=== PATIENT | female | born 1945 | race Asian ===

== ENCOUNTER → 2017-07-05 | Outpatient (CLI) | payer MEDICARE, BC | END | disposition home or self-care (01) | LOC: RADPV 13:48 | PROVIDERS: ATTEND Legal Medicine | DX: J84.9 Interstitial pulmonary disease, unspecified (principal); M19.011 Primary osteoarthritis, right shoulder; S82.51XK Displaced fracture of medial malleolus of right tibia, subsequent encounter for closed fracture with nonunion; X58.XXXD Exposure to other specified factors, subsequent encounter | CPT/HCPCS: 71020 ==

== ENCOUNTER → 2017-07-19 | Outpatient (CLI) | payer MEDICARE, BC | END | disposition home or self-care (01) | LOC: RADMN 13:10 | PROVIDERS: ATTEND Legal Medicine | DX: S82.51XK Displaced fracture of medial malleolus of right tibia, subsequent encounter for closed fracture with nonunion (principal); M25.471 Effusion, right ankle; M77.51 Other enthesopathy of right foot and ankle; X58.XXXD Exposure to other specified factors, subsequent encounter | CPT/HCPCS: 73700 ==

== ENCOUNTER 2018-11-20 17:16 | Emergency (ER) | payer MEDICARE ==
[~2018-11-20] VITALS: Ht 162.6 cm; Wt 59.1 kg
[2018-11-20 18:35] LABS: GLUCOSE,POINT OF CARE 103 MG/DL (70-110)
[2018-11-20] MEDS ORDERED: ATOR20TA86 PO (18:35)
[2018-11-20] MEDS ORDERED: LEVO75 PO (18:35)
[2018-11-20] MEDS ORDERED: MEMA5 PO (18:35)
[2018-11-20] MEDS ORDERED: AMLO-511 PO (18:35)
[2018-11-20] MEDS ORDERED: LOSA25TA2 PO (18:35)
[2018-11-20] MEDS ORDERED: SITA50 PO (18:35)
[2018-11-20 21:00] VITALS: BP 146/84
== END 2018-11-20 21:30 | disposition home or self-care (01) ==
LOC: EMS 17:18
DX: R51 Headache (principal); I10 Essential (primary) hypertension; E78.00 Pure hypercholesterolemia, unspecified; E11.9 Type 2 diabetes mellitus without complications; Z79.899 Other long term (current) drug therapy
CPT/HCPCS: 70450

== ENCOUNTER 2024-09-05 10:19 | Emergency (ER) | payer MEDICARE, OTHER ==
[~2024-09-05] VITALS: Ht 154.9 cm; Wt 48.0 kg
[~2024-09-05 10:19] MED LIST: AMLO-257 PO; ATOR20TA PO; LEVO75 PO; LOSA-417 PO; MEMA5TAB41 PO; SITA50 PO
[2024-09-05 10:20] VITALS: BP 157/92; PULSE 92; RESP 16; TEMP 98.6; O2SAT 97
[2024-09-05] MEDS: ACETAMINOPHEN 325 MG TABLET PO ONE (11:03)
[2024-09-05] MEDS ORDERED: ATOR40TA28 PO (11:37)
[2024-09-05] MEDS ORDERED: LINA5TAB PO (11:37)
[2024-09-05] MEDS ORDERED: AMLO5TAB66 PO (11:37)
[2024-09-05] MEDS ORDERED: LOSA-382 PO (11:37)
[2024-09-05] MEDS ORDERED: METF-1211 PO (11:37)
== END 2024-09-05 12:50 | disposition home or self-care (01) ==
LOC: EMS 10:19
DX: S20.211A Contusion of right front wall of thorax, initial encounter (principal); S09.90XA Unspecified injury of head, initial encounter; E11.9 Type 2 diabetes mellitus without complications; E78.00 Pure hypercholesterolemia, unspecified; I10 Essential (primary) hypertension; F03.90 Unspecified dementia, unspecified severity, without behavioral disturbance, psychotic disturbance, mood disturbance, and anxiety; Z86.73 Personal history of transient ischemic attack (TIA), and cerebral infarction without residual deficits; X58.XXXA Exposure to other specified factors, initial encounter; Y93.89 Activity, other specified; Y92.89 Other specified places as the place of occurrence of the external cause; Y99.8 Other external cause status
CPT/HCPCS: 70450; 71101; 72125; 99284